=== PATIENT | female | born 1950 | race Caucasian/White ===

== ENCOUNTER 2025-02-14 18:00 | Emergency (ER) | payer MEDICARE, BC ==
[~2025-02-14] VITALS: Ht 162.6 cm; Wt 89.0 kg
[2025-02-14 18:42] LABS: BASO # 0.04 K/mm3 (0.02-0.10); EOS # 0.23 K/mm3 (0.04-0.40); EOS % 2.1 % (1.0-5.0); HEMATOCRIT 35.3 % (37.0-47.0); HEMOGLOBIN 11.5 g/dL (12.5-16.0); LYMPH# 1.88 K/mm3 (1.50-4.00); MEAN CELL VOLUME 91 fl (78-100); MEAN CORPUSCULAR HEMOGLOBIN 30 pg (27-31); MEAN CORPUSCULAR HGB CONC 33 g/dL (33-37); MEAN PLATELET VOLUME 10.3 fl (7.4-10.4); MONO # 1.05 K/mm3 (0.20-0.80); NEU # 7.71 K/mm3 (1.40-6.50); PLATELET COUNT 175 K/mm3 (130-400); RED CELL DISTRIBUTION WIDTH 12.6 % (11.5-14.5); WHITE BLOOD COUNT 10.9 K/mm3 (4.8-10.8)
[2025-02-14] MEDS ORDERED: Ondansetron 4 MG/2 ML VIAL IV ONE (18:45)
[2025-02-14 18:51] LABS: ALBUMIN 3.5 g/dL (3.4-4.8)
[2025-02-14 18:52] LABS: CALCIUM 8.9 mg/dL (8.3-10.5)
[2025-02-14 18:53] LABS: TOTAL PROTEIN 6.7 g/dL (6.2-8.1)
[2025-02-14 18:55] LABS: TOTAL BILIRUBIN 0.4 mg/dL (0.2-1.2)
[2025-02-14] MEDS ORDERED: ALDACTONE 25MG25 MG PO (18:56)
[2025-02-14] MEDS ORDERED: METOPROLOL SUC100 M1 PO (18:57)
[2025-02-14] MEDS ORDERED: LEVOTHYROXINE100 MC1 PO (18:57)
[2025-02-14] MEDS ORDERED: CLOPIDOGREL75 M2 PO (18:58)
[2025-02-14] MEDS ORDERED: DESYREL 100MG100 MG PO (18:58)
[2025-02-14] MEDS ORDERED: LANTUS SOLOS100 U/ML (18:59)
[2025-02-14] MEDS ORDERED: NOVOLOG FLEX100 U/ML (19:00)
[2025-02-14] MEDS ORDERED: FUROSEMIDE20 MG PO (19:01)
[2025-02-14] MEDS ORDERED: NS 1,000 ML IV SCH (19:45)
[2025-02-14] MEDS ORDERED: NS 500 ML IV SCH (19:45)
[2025-02-14] MEDS ORDERED: NS 100 ML IV SCH (19:52)
[2025-02-14] MEDS ORDERED: Iohexol 300 - 100 ML VIAL IV ONE (19:52)
[2025-02-14] MEDS ORDERED: Heparin 5,000 UNITS/ML 1 ML VIAL IV ONE (21:00)
[2025-02-14] MEDS ORDERED: Heparin 5,000 UNITS/ML 1 ML VIAL IV PRN (21:00)
[2025-02-14 21:27] LABS: PROTHROMBIN TIME 10.3 SECONDS (9.0-12.0)
[2025-02-14 22:20] VITALS: BP 110/80
[2025-02-15 00:26] LABS: PARTIAL THROMBOPLASTIN TIME < 19.0 SECONDS (21.0-32.0)
== END 2025-02-14 22:20 | disposition short-term general hospital (02) ==
LOC: ED 18:00
PROVIDERS: Nurse Practitioner
DX: I21.4 Non-ST elevation (NSTEMI) myocardial infarction (principal); I50.9 Heart failure, unspecified; I11.0 Hypertensive heart disease with heart failure; R10.11 Right upper quadrant pain; R10.12 Left upper quadrant pain; D72.829 Elevated white blood cell count, unspecified; Z91.040 Latex allergy status; Z79.02 Long term (current) use of antithrombotics/antiplatelets
CPT/HCPCS: J1644; J2405; Q9967